=== PATIENT | male | born 1975 | race Caucasian/White ===

== ENCOUNTER → 2020-09-06 12:28 | Outpatient (BNVA) | payer OTHER, SELFPAY | PROVIDERS: PCP Internal Medicine; Visit Provider Internal Medicine Cardiovascular Disease | DX: R06.02 Shortness of breath (principal); I11.9 Hypertensive heart disease without heart failure | CPT/HCPCS: 93005 ==

== ENCOUNTER → 2020-09-15 09:27 | Outpatient (REF) | payer OTHER, SELFPAY ==
--- NOTE | ~2020-09-15 | NM_ITS ---
Exercise Myocardial perfusion study Indication: Chest pain to evaluate for myocardial ischemia Technique: The patient was brought in for an exercise perfusion study on 09/15/2020. Patient performed exercise as per Handy protocol and was injected 30 mCi of sestamibi was given intravenously one target HR was achieved. Images were obtained using the SPECT gamma camera interlaced with the gating device. Images were obtained in supine position. Resting perfusion study was performed on 09/16/2020. Patient was administered 30 mCi of sestamibi intravenously at rest. Images were then obtained in supine position. Images obtained with and without CT attenuation. Total DLP 87 mGy-cm. Images were processed with the software and compared side to side in short axis, horizontal long axis and vertical long axis views. Findings: The stress perfusion study showed non attenuated attenuated corrected images show normal uptake of radiotracer in all segments of LV myocardium. The gated study shows normal LV systolic function with calculated LVEF of greater than 55%. LV cavity is normal in size. The gated study shows normal systolic wall thickening and contraction of all segments. There is no transient ischemic dilation. Resting study shows normal uptake of LV myocardium. Gating at rest reveals normal systolic wall motion with ejection fraction at 57%. The findings are consistent with normal myocardial perfusion. NM/NM cardiolite stress test Impression: 1. Normal myocardial perfusion 2. Gated LVEF is 57% 3. Transient ischemic dilatation not present Stress EKG is borderline positive for ischemia
--- NOTE | 2020-09-15 09:30 | CA_ITS ---
Acquisition Time: 2020-09-15 09:55:46 Total Exercise Time: 00:10:25 Test Indications: SOB Medications: Protocol: NITHIN Max HR: 148 BPM 85% of Pred: 174 BPM Max BP: 140/080 mmHG Max Work Load: 12.3 METS Exercise stress nuclear using Nithin protocol, total of 10 min 25 sec, METS 12.30, and TAPHR up to 85 %. SOB at peak exercsie. EKG with occ. PVC's and ST depressions seen anteriorly, inferiorly and some lateral leads suggestive of ischemia. Nuclear images to follow. Normotensive response to exercise. Test reviewed with Dr. Avalos Referred By: Luis Miguel Leblanc Overread By: Edyta Madera NP
== END ==
LOC: HO.CARD 09:27
PROVIDERS: PCP Internal Medicine; Visit Provider Internal Medicine Cardiovascular Disease
DX: R07.9 Chest pain, unspecified (principal); R06.02 Shortness of breath
CPT/HCPCS: 78452; 93016; 93017; 93018; A9500

== ENCOUNTER 2020-09-24 08:31 | Outpatient (REF) | payer OTHER, SELFPAY ==
[2020-09-24 10:20] LABS: Anion Gap 12 (12-20); Blood Urea Nitrogen 22 mg/dL (9-16); Calcium 9.4 mg/dL (8.4-10.2); Carbon Dioxide 29 mmol/L (22-29); Chloride 103 mmol/L (96-108); Estimated Glomerular Filt Rate > 60; Glucose Random 110 mg/dL (60-115); Potassium 3.7 mmol/L (3.3-5.1); Sodium 140 mmol/L (135-145)
[2020-09-24 10:28] LABS: B Type Natriuretic Peptide 20 pg/mL (<100)
== END 2020-09-24 08:32 | disposition home or self-care (01) ==
LOC: HO.LAB 08:31
PROVIDERS: PCP Internal Medicine; Visit Provider Internal Medicine Cardiovascular Disease
DX: R06.02 Shortness of breath (principal)
CPT/HCPCS: 36415; 80048; 83880

== ENCOUNTER → 2020-09-30 07:36 | Outpatient (REF) | payer OTHER, SELFPAY ==
--- NOTE | 2020-09-30 07:43 | CA_ITS ---
Transthoracic Echocardiogram Patient (Last, First, Middle): Blayne Lugo M Gender: Male Date of : 1975 Age: 45 Procedure Date: 09/30/2020 Procedure Type: Transthoracic Echocardiogram Location: OP Height: 175.26 cm Weight: 102.06 kg BSA: 2.17 m2 Heart Rate: bpm BP: 122 / 80 mmHg Raisin Washer: Referring MD: Luis Miguel Leblanc MD Symptoms: R06.02 - Shortness of breath Study Quality: Fair ECG Rhythm: Sinus Conclusions: - The left ventricular systolic function is normal. The visually estimated ejection fraction is between 65-70%. - There is moderately increased left ventricular wall thickness. - Evidence suggests grade II (moderate) diastolic dysfunction. - The left atrium is moderately dilated. - Tip of the posterior mitral leaflet appears flail(mild). - There is mild mitral valve regurgitation. - Mild pulmonary hypertension is present. Findings Left Ventricle Normal left ventricular cavity size. There is moderately increased left ventricular wall thickness. The left ventricular systolic function is normal. The visually estimated ejection fraction is between 65-70%. There is no evidence of regional wall motion abnormalities. E/E prime ratio is >15, consistent with elevated filling pressures. Evidence suggests grade II (moderate) diastolic dysfunction. Right Ventricle Normal right ventricular cavity size and systolic function. Atria The left atrium is moderately dilated. The right atrium is normal in size. Aortic Valve There is a normal trileaflet aortic valve. There is no aortic valve stenosis. There is no aortic valve regurgitation. Mitral Valve There is mild mitral annular calcification. There is mild mitral valve regurgitation. There is no mitral valve stenosis. Tip of the posterior mitral leaflet appears flail. Pulmonic Valve The pulmonic valve was not well visualized. Tricuspid Valve Normal tricuspid valve structure. There is trace tricuspid valve regurgitation. The right ventricular systolic pressure is 41 mmHg. Mild pulmonary hypertension is present. Great Vessels The asc aorta is normal in size. Venous The inferior vena cava is normal in size and collapses greater than 50% with inspiration. Pericardium/Pleural There is no evidence of pericardial effusion. Prior Study Comparison Changes noted compared to prior study dated: 08/22/2019. See comments on the mitral valve. Measurements 2D Linear Measurements RVIDd: 3.23 RVIDd Index: 1.49 IVSd: 1.43 0.6-0.9/0.6-1.0 cm LVIDd: 4.80 3.9-5.3/4.2-5.9 cm LVIDd Index: 2.21 2.4-3.2/2.2-3.1 cm/m2 LVIDs: 2.90 2.0-3.6 cm LVPWd: 1.35 0.7-1.1 cm Ao Root: 3.20 2.1-3.5 cm LA Diam: 5.10 2.7-3.8/3.0-4.0 cm LAIDs Index: 2.35 1.5-2.3 cm/m2 LV Mass: 337.92 67-162/88-224 g LV Mass Index: 155.73 43-95/49-115 g/m2 LVOT Diam: 2.40 3.0+(-)1.3 cm 2D Systolic Function EF 4C: 48.70 >55% EF 2C: 68.60 >55% Mitral Valve MV Pk E: 0.89 MV PK A: 0.92 MV Decel Time: 239.00 E/A: 1.00 E'Lateral: 5.13 E'Medial: 5.61 E/E' Med: 15.80 E/E' Lat: 17.30 PHT: 64.00 MVA PHT: 3.44 Decel Mcculloch: 6.21 MR Vol - PW Dopp: 6.60 MR VTI: 1.65 MR ERO: 4.00 MR Alias Jackson: 0.25 MR RAD: 0.40 Aortic Valve AoV Pk Jackson: 1.81 AoV Mn Jackson: 1.34 AoV VTI: 0.34 AoV Pk Grad: 13.00 Aov Mn Grad: 8.00 NAYELY Cont.VTI: 3.52 LVOT LVOT Pk Jackson: 1.39 LVOT Mn Jackson: 0.92 LVOT VTI: 0.27 LVOT Pk Grad: 8.00 LVOT Mn Grad: 4.00 LVOT Diam: 2.40 LVOT Area: 4.52 Diastolic Function MV Pk E: 0.89 MV Pk A: 0.92 E/A: 1.00 E'Medial: 5.61 E/E' Med: 15.80 E' Laterial: 5.13 E/E' Lat: 17.30 Tricuspid Valve TR Pk Jackson: 3.09 TR Pk Grad: 38.00 RA Press: 3.00 RVSP: 41.00 Great Vessels Aorta Ao Root-2D: 3.20 2.0-3.7 cm Ao Asc: 3.60 2.1-3.4 cm Updated in Other Vendor System with Status of Final Darrion Avalos MD electronically signed on 10/01/2020 11:51:08 AM with status of Final
== END ==
LOC: HO.CARD 07:36
PROVIDERS: PCP Internal Medicine; Visit Provider Internal Medicine Cardiovascular Disease
DX: R06.02 Shortness of breath (principal)
CPT/HCPCS: 93306